=== PATIENT | male | born 1980 | race Caucasian/White ===

== ENCOUNTER 2018-08-24 10:34 | Emergency (ER) | payer BC, OTHER ==
[~2018-08-24] VITALS: Ht 172.7 cm; Wt 61.2 kg
[2018-08-24] MEDS ORDERED: LAMOTRIGINE150 MG PO (10:44)
[2018-08-24 11:06] LABS: ABSOLUTE NEUTROPHILS 4.4 thou/uL (1.4-8.2); BASOPHILS 0.6 % (0.0-2.0); EOSINOPHILS 3.4 % (0.0-3.0); HEMOGLOBIN 14.6 gm/dL (14.0-18.0); LYMPHOCYTES 23.7 % (24.0-44.0); MCH 29.5 pg (26.0-34.0); MCHC 34.7 g/dL (28.0-37.0); MONOCYTES 10.4 % (1.0-8.0); PLATELET COUNT 254 thou/uL (150-400); POLYS 61.9 % (36.0-66.0); RBC 4.94 mil/uL (4.50-6.00); RDW 13.2 % (10.5-14.5); WBC 7.1 thou/uL (4.0-11.0)
[2018-08-24 11:10] LABS: ANION GAP 8 mmol/L (7-16); BUN 19 mg/dL (7-18); CALCIUM 10.1 mg/dL (8.5-10.1); CHLORIDE 103 mmol/L (98-107); CO2 29 mmol/L (21-32); CREATININE 1.1 mg/dL (0.7-1.3); GLUCOSE 103 mg/dL (74-106); POTASSIUM 4.1 mmol/L (3.5-5.1); SODIUM 140 mmol/L (136-145)
[2018-08-24 11:19] LABS: TROPONIN-I <0.06 ng/mL (<0.06)
[2018-08-24] MEDS ORDERED: CLEOCIN HCL150 MG PO (11:30)
[2018-08-24] MEDS ORDERED: PEPCID20 MG PO (11:31)
[2018-08-24 11:53] VITALS: BP 108/77
--- NOTE | 2018-08-24 16:12 | EKG ---
[place] [address] [facility] [place] [address] ELECTROCARDIOGRAM REPORT Name: OLIVER ALVARES Room [facility]: [facility] [id number] Admission: 08/24/18 Attend Phys: Discharge: 08/24/18 Date of : 84 Report #: [id number] THIS REPORT FOR: //name// 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
== END 2018-08-24 11:53 | disposition home or self-care (01) ==
LOC: ER 10:34
PROVIDERS: Student in an Organized Health Care Education/Training Program
DX: K04.7 Periapical abscess without sinus (principal); R12 Heartburn; Z88.0 Allergy status to penicillin; Z88.8 Allergy status to other drugs, medicaments and biological substances

== ENCOUNTER 2019-02-08 16:43 | Emergency (ER) | payer BC, OTHER ==
[~2019-02-08] VITALS: Ht 175.3 cm; Wt 59.0 kg
[2019-02-08 16:43] VITALS: BP 122/57
[~2019-02-08 16:43] MED LIST: CLEOCIN HCL150 MG PO; LAMOTRIGINE150 MG PO; PEPCID20 MG PO
[2019-02-08] MEDS ORDERED: IBUPROFEN 600600 M1 PO (17:37)
== END 2019-02-08 17:56 | disposition home or self-care (01) ==
LOC: ER 16:43
DX: S16.1XXA Strain of muscle, fascia and tendon at neck level, initial encounter (principal); Z88.0 Allergy status to penicillin; Z88.8 Allergy status to other drugs, medicaments and biological substances; X58.XXXA Exposure to other specified factors, initial encounter; Y93.89 Activity, other specified; Y92.89 Other specified places as the place of occurrence of the external cause; Y99.8 Other external cause status